=== PATIENT | male | born 1990 | race Caucasian/White ===

== ENCOUNTER 2016-03-13 09:39 | Emergency (ER) | payer OTHER ==
[~2016-03-13] VITALS: Ht 180.3 cm; Wt 83.9 kg
[~2016-03-13 09:39] MED LIST: ACET500T68 PO; AMOX500C PO
[2016-03-13] MEDS ORDERED: IBUPROFEN 800 MG TABLET. PO ONE (10:15)
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
[2016-03-13] MEDS ORDERED: CYCL10TA2 PO (11:26)
[2016-03-13 11:53] VITALS: BP 121/56
== END 2016-03-13 11:53 | disposition home or self-care (01) ==
LOC: ER 09:39
DX: R07.81 Pleurodynia (principal); F12.10 Cannabis abuse, uncomplicated; V47.5XXA Car driver injured in collision with fixed or stationary object in traffic accident, initial encounter; Y92.413 State road as the place of occurrence of the external cause; Y93.89 Activity, other specified; Y99.8 Other external cause status
CPT/HCPCS: 71101; 99283; 99284